=== PATIENT | male | born 1970 | race Two or more races ===

== ENCOUNTER → 2019-09-17 | Outpatient (CLI) | payer OTHER | END | disposition home or self-care (01) | LOC: LAB SALUS 09-16 08:00 | DX: Z13.220 Encounter for screening for lipoid disorders (principal); Z11.59 Encounter for screening for other viral diseases; Z13.1 Encounter for screening for diabetes mellitus; Z11.4 Encounter for screening for human immunodeficiency virus [HIV]; Z72.51 High risk heterosexual behavior; Z11.3 Encounter for screening for infections with a predominantly sexual mode of transmission; Z12.11 Encounter for screening for malignant neoplasm of colon ==

== ENCOUNTER 2020-03-15 17:54 | Emergency (ER) | payer OTHER ==
[~2020-03-15] VITALS: Ht 172.7 cm; Wt 79.4 kg
== END 2020-03-15 18:54 | disposition home or self-care (01) ==
LOC: ER 17:54
DX: S61.227A Laceration with foreign body of left little finger without damage to nail, initial encounter (principal); W45.8XXA Other foreign body or object entering through skin, initial encounter; Y93.89 Activity, other specified; Y92.090 Kitchen in other non-institutional residence as the place of occurrence of the external cause; Y99.8 Other external cause status